=== PATIENT | female | born 1955 | race American Indian/Alaskan Native ===

== ENCOUNTER 2017-03-30 11:16 | Outpatient (CLI) | payer BC ==
--- NOTE | 2017-03-31 15:48 | Mammography Report ---
BILATERAL DIGITAL SCREENING MAMMOGRAM with CAD: 03/30/17 11:16:00 CLINICAL: Routine screening. COMPARISON:None available. FINDINGS: The breasts are heterogeneously dense, which may obscure small masses. No mass, architectural distortion or suspicious calcifications. IMPRESSION: No mammographic evidence of malignancy. BI-RADS CATEGORY: 1 - - Negative RECOMMENDATION: Routine mammographic screening in one year. COMMENT: Patient follow-up letters are generated by our [employer] application.
== END 2017-03-30 11:17 | disposition home or self-care (01) ==
LOC: MAMMO 11:16
PROVIDERS: ATTEND Obstetrics & Gynecology
DX: Z12.31 Encounter for screening mammogram for malignant neoplasm of breast (principal)
CPT/HCPCS: 77067; G0202

== ENCOUNTER 2017-04-06 15:37 | Outpatient (CLI) | payer BC ==
--- NOTE | 2017-04-08 12:57 | Vascular Lab Report ---
LOWER EXTREMITY ARTERIAL DUPLEX: REASON FOR EXAM: Decreased peripheral pulses. COMMENTS ON THE RIGHT: Triphasic waveforms are seen proximally. Triphasic waveforms are seen distally. No significant velocity gradients are identified. No significant plaque is identified. Findings are consistent with normal perfusion. Findings are consistent with the ability to heal distal wounds. COMMENTS ON THE LEFT: Triphasic waveforms are seen proximally. Triphasic waveforms are seen distally. No significant velocity gradients are identified. No significant plaque is identified. Findings are consistent with normal perfusion. Findings are consistent with the ability to heal distal wounds. IMPRESSION: RIGHT: Essentially normal arterial flow. LEFT:Essentially normal arterial flow.
== END 2017-04-06 15:38 | disposition home or self-care (01) ==
LOC: VAS 15:37
PROVIDERS: ATTEND Internal Medicine
DX: M79.605 Pain in left leg (principal); R09.89 Other specified symptoms and signs involving the circulatory and respiratory systems; E11.9 Type 2 diabetes mellitus without complications
CPT/HCPCS: 93925

== ENCOUNTER 2017-09-30 07:49 | Outpatient (CLI) | payer BC ==
[2017-09-30 08:15] LABS: Basophils # (Auto) 0.1 K/mm3 (0.0-0.1); Basophils % (Auto) 1.1 % (0.0-1.8); Eosinophils # (Auto) 0.2 K/mm3 (0.0-0.4); Eosinophils % (Auto) 3.2 % (0.0-4.3); Hematocrit 39.7 % (30.3-42.9); Hemoglobin 13.1 gm/dl (10.1-14.3); Lymphocytes # (Auto) 2.2 K/mm3 (1.2-5.4); Lymphocytes % (Auto) 33.5 % (13.4-35.0); Mean Corpuscular HGB Conc 33 % (30-34); Mean Corpuscular Hemoglobin 28 pg (28-32); Mean Corpuscular Volume 86 fl (79-97); Monocytes # (Auto) 0.5 K/mm3 (0.0-0.8); Monocytes % (Auto) 7.7 % (0.0-7.3); Platelet Count 210 K/mm3 (140-440); Red Cell Distribution Width 13.2 % (13.2-15.2)
[2017-09-30 08:47] LABS: Alanine Aminotransferase 15 units/L (7-56); BUN/Creatinine Ratio 15; Blood Urea Nitrogen 9 mg/dL (7-17); Calcium 9.4 mg/dL (8.4-10.2); Chol/HDL Ratio 4.14 %; HDL Cholesterol 55 mg/dL (40-59); Hemolysis Index 12; LDL Cholesterol,Direct 156 mg/dL (50-130)
== END 2017-09-30 07:50 | disposition home or self-care (01) ==
LOC: LAB 07:49
PROVIDERS: ATTEND Internal Medicine
DX: E11.9 Type 2 diabetes mellitus without complications (principal)
CPT/HCPCS: 36415; 80053; 80061; 83036; 84443; 85025

== ENCOUNTER 2017-09-30 09:37 | Outpatient (CLI) | payer BC ==
--- NOTE | 2017-09-30 11:52 | XRay Report ---
LUMBOSACRAL SPINE, FIVE VIEWS: HISTORY: Back pain, dorsopathy unspecified. There is normal height and alignment of the lumbar vertebra. No evidence for compression deformity, subluxation or bone lesion. Mild degenerative disc disease and facet arthropathy are identified at all levels. No advanced degenerative changes. The oblique images demonstrate no evidence for high-grade neural foraminal narrowing or pars defect. The sacrum and SI joints are unremarkable. IMPRESSION: Mild multilevel degenerative disc disease and facet arthropathy. No acute process.
== END 2017-09-30 09:38 | disposition home or self-care (01) ==
LOC: XRAY 09:37
PROVIDERS: ATTEND Internal Medicine
DX: M51.37 Other intervertebral disc degeneration, lumbosacral region (principal); M53.9 Dorsopathy, unspecified; M12.88 Other specific arthropathies, not elsewhere classified, other specified site
CPT/HCPCS: 72110

== ENCOUNTER 2017-12-07 10:08 | Day surgery (SDC) | payer BC ==
[~2017-12-07 10:08] MED LIST: WATER FOR IRRIG STERILE IR ONE; XYLOCAINE MPF 2% ONE
[2017-12-07] MEDS ORDERED: DIPRIVAN 10 MG/ML IV ONE ×2 (10:45)
[2017-12-07] MEDS ORDERED: ROBINUL ONE (10:50)
[2017-12-07] MEDS ORDERED: NACL 0.9% 1000 ML 1,000 ML IV SCH (11:00)
--- NOTE | 2017-12-07 11:43 | Post Operative Note ---
Date of procedure: 12/07/17 Pre-op diagnosis: screening colonoscopy Post-op diagnosis: same Findings: internal hemorrhoids, otherwise normal colonoscopy Procedure: Colonoscopy Anesthesia: MAC Surgeon: CARLO KHANNA Estimated blood loss: none Pathology: none Condition: stable Disposition: same day
--- NOTE | 2017-12-07 11:45 | Operative Report ---
Operative Report Operative Report: Colonoscopy Procedure Note Date of procedure: 12/07/2017 Endoscopist: Aries Jimenez Pre-op diagnosis: Screening for colon cancer Post-op diagnosis: internal hemorrhoids Anesthesia: MAC Complications: No immediate complications Estimated blood loss: none Procedure: After consent was obtained, the patient was placed in the left lateral decubitus position. The fujinon colonoscope was inserted into the patient's rectum under direct vision, and advanced to the cecum without difficulty. The patient tolerated the procedure well. The views of the mucosa were good. The quality of prep was good. The patient's vital signs were monitored continuously throughout the procedure. Findings: There were internal hemorrhoids visualized on retroflexion view. Otherwise, the colon appeared normal. Impression: 1. Internal hemorrhoids, otherwise normal colonoscopy Recommendations: -repeat colonoscopy in 10 years for screening purposes
[2017-12-07 12:12] VITALS: BP 124/69
== END 2017-12-07 10:09 | disposition home or self-care (01) ==
LOC: GIO 10:08
PROVIDERS: ATTEND Internal Medicine Gastroenterology
DX: Z12.11 Encounter for screening for malignant neoplasm of colon (principal); K64.8 Other hemorrhoids; E11.9 Type 2 diabetes mellitus without complications; D57.1 Sickle-cell disease without crisis; Z79.84 Long term (current) use of oral hypoglycemic drugs; Z83.3 Family history of diabetes mellitus; Z80.42 Family history of malignant neoplasm of prostate
CPT/HCPCS: 45378; J2704; J7030

== ENCOUNTER 2018-04-29 08:14 | Outpatient (CLI) | payer BC ==
[2018-04-29 08:38] LABS: Basophils % (Auto) 0.7 % (0.0-1.8); Eosinophils # (Auto) 0.1 K/mm3 (0.0-0.4); Hemoglobin 13.6 gm/dl (10.1-14.3); Lymphocytes # (Auto) 1.7 K/mm3 (1.2-5.4); Lymphocytes % (Auto) 24.4 % (13.4-35.0); Mean Corpuscular HGB Conc 33 % (30-34); Mean Corpuscular Volume 86 fl (79-97); Monocytes # (Auto) 0.3 K/mm3 (0.0-0.8); Platelet Count 229 K/mm3 (140-440); Red Blood Count 4.79 M/mm3 (3.65-5.03); Red Cell Distribution Width 13.6 % (13.2-15.2)
[2018-04-29 09:22] LABS: Alanine Aminotransferase 16 units/L (7-56); Albumin 4.4 g/dL (3.9-5); BUN/Creatinine Ratio 13; Blood Urea Nitrogen 9 mg/dL (7-17); Calcium 9.9 mg/dL (8.4-10.2); Chol/HDL Ratio 3.65 %; HDL Cholesterol 55 mg/dL (40-59); Hemolysis Index 6; LDL Cholesterol,Direct 139 mg/dL (50-130)
[2018-04-29 14:27] LABS: Creatinine,Urine 124.9 mg/dL (0.1-20.0); Microalbumin/Creatinine Ratio 10.4 ug/mg
== END 2018-04-29 08:15 | disposition home or self-care (01) ==
LOC: LAB 08:14
PROVIDERS: ATTEND Internal Medicine
DX: E11.9 Type 2 diabetes mellitus without complications (principal)
CPT/HCPCS: 36415; 80053; 80061; 82043; 83036; 84443; 85025

== ENCOUNTER 2018-05-04 07:12 | Outpatient (CLI) | payer BC ==
--- NOTE | 2018-05-04 08:15 | XRay Report ---
RIGHT KNEE, 3 views: History: Right knee pain. The bony architecture is intact without evidence of fracture or dislocation. No significant soft tissue abnormality is seen. IMPRESSION: Normal right knee.
--- NOTE | 2018-05-04 08:15 | XRay Report ---
LEFT THUMB, 3 views: History: Left thumb pain. The bony architecture is intact. Bony alignment is normal. No soft tissue abnormalities are seen. The joint spaces appear preserved. IMPRESSION: Left thumb within normal limits.
--- NOTE | 2018-05-04 08:16 | XRay Report ---
SACRUM AND COCCYX, 3 views: History: Sacrum pain. The bony architecture is intact. The alignment appears normal. No significant soft tissue abnormalities are seen. IMPRESSION: Normal sacrum and coccyx.
--- NOTE | 2018-05-05 13:50 | Mammography Report ---
BILATERAL DIGITAL SCREENING MAMMOGRAM with CAD: 05/04/18 07:12:00 CLINICAL: Routine screening. COMPARISON:03/30/17 FINDINGS: The breasts are heterogeneously dense, which may obscure small masses. No mass, architectural distortion or suspicious calcifications. IMPRESSION: No mammographic evidence of malignancy. BI-RADS CATEGORY: 1 - - Negative RECOMMENDATION: Routine mammographic screening in one year. COMMENT: Patient follow-up letters are generated by our [employer] application.
== END 2018-05-04 07:13 | disposition home or self-care (01) ==
LOC: MAMMO 07:12
PROVIDERS: ATTEND Internal Medicine
DX: Z12.31 Encounter for screening mammogram for malignant neoplasm of breast (principal); M25.561 Pain in right knee; M79.645 Pain in left finger(s); M53.3 Sacrococcygeal disorders, not elsewhere classified
CPT/HCPCS: 72220; 77067

== ENCOUNTER 2018-05-05 15:31 | Emergency (ER) | payer BC ==
[2018-05-05 15:44] VITALS: BP 143/69
[2018-05-05] MEDS ORDERED: IBUPROFEN PO ONE (15:53)
--- NOTE | 2018-05-05 16:15 | Emergency Department Report ---
ED Lower Extremity HPI - General Chief Complaint: Fall Stated Complaint: HIP PAIN/INJURY Time Seen by Provider: 05/05/18 15:51 Source: patient Mode of arrival: Ambulatory Limitations: No Limitations - History of Present Illness Initial Comments: This is a 63-year-old female nontoxic, well nourished in appearance, no acute signs of distress presents to the ED with c/o of left hip and lateral thigh pain status post fall that occured this morning in the working parking lot. Patient stated that she had a ground level fall. Patient deneis any head or neck trauma or pain. Patient denies any back pain. Patient denies any other trauma. Patient denies any numbness, tingling, fever, chills, nausea, vomiting, chest pain, shortness of breath, headache, stiff neck. Patient denies any joint swelling or joint redness. Patient denies decreased range of motion. Patient stated has decreased gait due to pain. Patient denies any allergies. MD Complaint: hip injury, thigh injury -: This morning Injury: Hip: Left, Thigh: Left Place: work Severity: mild Severity scale (0 -10): 8 Improves With: immobilization Worsens With: weight bearing, movement, palpation Context: fall Associated Symptoms: able to partially bear weight, ambulatory. denies: snap/pop sensation, swelling, numbness, tingling, unable to bear weight - Related Data Home Medications Medication Instructions Recorded Confirmed Last Taken metFORMIN 500 mg PO BID 12/07/17 05/05/18 12/06/17 Previous Rx's Medication Instructions Recorded Last Taken Type Acetaminophen/Codeine [Tylenol 1 tab PO Q6H PRN #12 tab 05/05/18 Unknown Rx /Codeine # 3 tab] Ibuprofen [Motrin] 600 mg PO Q8H PRN #20 tablet 05/05/18 Unknown Rx Allergies Allergy/AdvReac Type Severity Reaction Status Date / Time No Known Allergies Allergy Verified 12/07/17 07:26 ED Review of Systems ROS: Stated complaint: HIP PAIN/INJURY Other details as noted in HPI Constitutional: denies: chills, fever Eyes: denies: eye pain, eye discharge, vision change ENT: denies: ear pain, throat pain Respiratory: denies: cough, shortness of breath, wheezing Cardiovascular: denies: chest pain, palpitations Endocrine: no symptoms reported Gastrointestinal: denies: abdominal pain, nausea, diarrhea Genitourinary: denies: urgency, dysuria, discharge Musculoskeletal: arthralgia. denies: back pain, joint swelling Skin: denies: rash, lesions Neurological: denies: headache, weakness, paresthesias Psychiatric: denies: anxiety, depression Hematological/Lymphatic: denies: easy bleeding, easy bruising ED Past Medical Hx - Past Medical History Hx Diabetes: Yes Hx Sickle Cell Disease: Yes (TRAIT) - Surgical History Past Surgical History?: No - Social History Smoking Status: Never Smoker Substance Use Type: None - Medications Home Medications: Home Medications Medication Instructions Recorded Confirmed Last Taken Type metFORMIN 500 mg PO BID 12/07/17 05/05/18 12/06/17 History Acetaminophen/Codeine [Tylenol 1 tab PO Q6H PRN #12 tab 05/05/18 Unknown Rx /Codeine # 3 tab] Ibuprofen [Motrin] 600 mg PO Q8H PRN #20 tablet 05/05/18 Unknown Rx ED Physical Exam - General Limitations: No Limitations General appearance: alert, in no apparent distress - Head Head exam: Present: atraumatic, normocephalic - Eye Eye exam: Present: normal appearance - Neck Neck exam: Present: normal inspection, full ROM - Extremities Exam Extremities exam: Present: normal inspection, full ROM, tenderness, normal ca pillary refill. Absent: joint swelling, calf tenderness - Expanded Lower Extremity Exam Left Hip exam: Present: normal inspection, full ROM, tenderness, external rotation, internal rotation, pelvic stability. Absent: swelling, abrasion, laceration, ecchymosis, deformity, crepidus, dislocation, erythema, shortening Upper Leg exam: Present: normal inspection, full ROM, tenderness. Absent: swelling, abrasion, laceration, ecchymosis, deformity, crepidus, dislocation, erythema Knee exam: Present: normal inspection, full ROM. Absent: tenderness Lower Leg exam: Present: normal inspection, full ROM. Absent: tenderness Ankle exam: Present: normal inspection, full ROM. Absent: tenderness Foot/Toe exam: Present: normal inspection, full ROM. Absent: tenderness Neuro vascular tendon exam: Present: no vascular compromise Gait: Positive: observed and limited by pain 1 - pain here - Back Exam Back exam: Present: normal inspection, full ROM. Absent: tenderness, CVA tenderness (R), CVA tenderness (L), muscle spasm, paraspinal tenderness, vertebral tenderness, rash noted - Neurological Exam Neurological exam: Present: alert, oriented X3, normal gait - Psychiatric Psychiatric exam: Present: normal affect, normal mood - Skin Skin exam: Present: warm, dry, intact, normal color. Absent: rash ED Course Vital Signs 05/05/18 15:41 Temperature 97.8 F Pulse Rate 74 Respiratory 18 Rate Blood Pressure 143/69 O2 Sat by Pulse 99 Oximetry - Reevaluation(s) Reevaluation #1: 05/05/18 16:59 Patient is speaking in full sentences with no signs of distress noted. ED Lower Extremity MDM - Medical Decision Making This is a 63-year-old female that presents with left hip strain. Patient is stable and was examined by me. I referred patient to an orthopedic doctor for further evaluation for possible MRI. X-ray has been obtained and dictated by the radiologist. Patient is notified of the x-ray report with noted by the patient. Patient does have normal gait with no tenderness and no joint swelling. No ecchymosis. no joint redness or swelling. Not warm to touch. No signs of cellulites present. Patient was instructed to RICE therapy. Patient received Motrin for pain. Patient is discharged with Motrin and Tylenol #3. At time of discharge, the patient does not seem toxic or ill in appearance. No acute signs of distress noted. Patient agrees to discharge treatment plan of care. No further questions noted by the patient. Critical care attestation.: If time is entered above; I have spent that time in minutes in the direct care of this critically ill patient, excluding procedure time. ED Disposition Clinical Impression: Strain of left hip Qualifiers: Encounter type: initial encounter Qualified Code(s): S76.012A - Strain of muscle, fascia and tendon of left hip, initial encounter Fall Qualifiers: Encounter type: initial encounter Qualified Code(s): W19.XXXA - Unspecified fall, initial encounter Disposition: TO HOME OR SELFCARE Is pt being admited?: No Does the pt Need Aspirin: No Condition: Stable Instructions: RICE Therapy (ED) Additional Instructions: Follow-up with a orthopedic doctor in 3-5 days or if symptoms worsen and continue return to emergency room as soon as possible. Do not operate any machinery while taking Tylenol with codeine as this may cause drowsiness. Prescriptions: Acetaminophen/Codeine [Tylenol /Codeine # 3 tab] 1 tab PO Q6H PRN #12 tab PRN Reason: Pain , Severe (7-10) Ibuprofen [Motrin] 600 mg PO Q8H PRN #20 tablet PRN Reason: Pain Referrals: PRIMARY CAREMD [Referring] - 3-5 Days AMARJIT PRITCHETT MD [Staff Physician] - 3-5 Days [facility] [Outside] - 3-5 Days Forms: Work/School Release Form(ED)
--- NOTE | 2018-05-05 17:18 | XRay Report ---
FINAL REPORT EXAM: XR FEMUR 2+V LT HISTORY: pain s/p fall TECHNIQUE: AP and lateral views of the left femur PRIORS: None. FINDINGS: There is no evidence for acute fracture or dislocation. No soft tissue swelling or radiopaque foreign bodies are seen. Bony mineralization is normal and joint spaces are maintained. IMPRESSION: No acute bony or soft tissue abnormality noted.
--- NOTE | 2018-05-05 17:19 | XRay Report ---
FINAL REPORT EXAM: XR HIP 2-3V LT HISTORY: pain s/p fall TECHNIQUE: AP view of the pelvis and single coned-down view of the left hip. PRIORS: None. FINDINGS: No evidence for acute fracture or dislocation is seen. Joint spaces are maintained. The soft tissues are unremarkable. Bony mineralization is normal. IMPRESSION: No acute soft tissue or bony abnormality noted in the left hip.
== END 2018-05-05 17:35 | disposition home or self-care (01) ==
LOC: ED 15:31
DX: E11.9 Type 2 diabetes mellitus without complications (principal); D57.3 Sickle-cell trait; W19.XXXA Unspecified fall, initial encounter; Y93.89 Activity, other specified; Y99.0 Civilian activity done for income or pay; Y92.481 Parking lot as the place of occurrence of the external cause
CPT/HCPCS: 99283

== ENCOUNTER 2019-02-11 07:40 | Outpatient (CLI) | payer BC ==
--- NOTE | 2019-02-11 08:27 | XRay Report ---
CERVICAL SPINE, 5 VIEWS INDICATION: M54.12 CERVICAL RADICULOPATHY. Shoulder pain COMPARISON: None. IMPRESSION: There is borderline bone mineralization. Normal height and alignment of the cervical ve rtebral bodies. No evidence for fracture or bone lesion. Disc space height is preserved although mini mal degenerative endplate changes are identified. Mild facet arthropathy is suspected at C5-6 and C7- T1. Oblique images demonstrate no high-grade narrowing of the bony neural foramen. No acute osseous or soft tissue abnormality. If radicular symptoms are present, consider further evaluation with MRI cervical spine without contrast. RIGHT HIP, 2 VIEWS INDICATION: Right hip pain. COMPARISON: None. IMPRESSION: Borderline bone mineralization. No acute osseous findings or joint pathology is identif ied. No bone lesion or osteonecrosis. The pelvis is unremarkable. Signer Name: Silvio Humphrey Jr, MD Signed: 02/11/2019 8:22 AM Workstation Name: [id number]
[2019-02-11 08:41] LABS: Basophils # (Auto) 0.1 K/mm3 (0.0-0.1); Basophils % (Auto) 1.1 % (0.0-1.8); Eosinophils # (Auto) 0.2 K/mm3 (0.0-0.4); Eosinophils % (Auto) 2.4 % (0.0-4.3); Hematocrit 41.1 % (30.3-42.9); Hemoglobin 13.4 gm/dl (10.1-14.3); Lymphocytes # (Auto) 1.9 K/mm3 (1.2-5.4); Lymphocytes % (Auto) 28.6 % (13.4-35.0); Mean Corpuscular HGB Conc 33 % (30-34); Mean Corpuscular Volume 87 fl (79-97); Monocytes # (Auto) 0.4 K/mm3 (0.0-0.8); Monocytes % (Auto) 5.8 % (0.0-7.3); Platelet Count 191 K/mm3 (140-440); Red Cell Distribution Width 13.2 % (13.2-15.2)
[2019-02-11 08:57] LABS: Alanine Aminotransferase 15 units/L (7-56); Albumin 4.4 g/dL (3.9-5); BUN/Creatinine Ratio 16; Blood Urea Nitrogen 11 mg/dL (7-17); Calcium 9.3 mg/dL (8.4-10.2); Chol/HDL Ratio 3.74 %; HDL Cholesterol 54 mg/dL (40-59); Hemolysis Index 19; LDL Cholesterol,Direct 143 mg/dL (50-130)
[2019-02-11 22:29] LABS: Creatinine,Urine 84.5 mg/dL (0.1-20.0)
[2019-02-11 22:31] LABS: Microalbumin/Creatinine Ratio 14.2 ug/mg
== END 2019-02-11 07:41 | disposition home or self-care (01) ==
LOC: LAB 07:40 → XRAY 07:40
PROVIDERS: ATTEND Internal Medicine
DX: M54.12 Radiculopathy, cervical region (principal); M25.551 Pain in right hip; E11.9 Type 2 diabetes mellitus without complications; M48.02 Spinal stenosis, cervical region; M25.519 Pain in unspecified shoulder
CPT/HCPCS: 36415; 72050; 80053; 80061; 82043; 83036; 84443; 85025

== ENCOUNTER 2020-02-10 11:32 | Outpatient (CLI) | payer BC | END 2020-02-10 11:33 | disposition home or self-care (01) | LOC: MAMMO 11:32 | PROVIDERS: ATTEND Internal Medicine | DX: Z12.31 Encounter for screening mammogram for malignant neoplasm of breast (principal) | CPT/HCPCS: 77067 ==

== ENCOUNTER 2020-02-15 07:12 | Outpatient (CLI) | payer BC ==
[2020-02-15 10:18] LABS: Hematocrit 38.3 % (30.3-42.9); Hemoglobin 13.5 gm/dl (10.1-14.3); Mean Corpuscular HGB Conc 35 % (30-34); Mean Corpuscular Volume 84 fl (79-97); Platelet Count 194 K/mm3 (140-440); Red Blood Count 4.54 M/mm3 (3.65-5.03); Red Cell Distribution Width 13.3 % (13.2-15.2)
[2020-02-15 10:50] LABS: Alanine Aminotransferase 15 units/L (7-56); Albumin 4.5 g/dL (3.9-5); Blood Urea Nitrogen 9 mg/dL (7-17); Calcium 10.2 mg/dL (8.4-10.2); Chol/HDL Ratio 4.19 %; Creatinine,Urine 42.4 mg/dL (0.1-20.0); HDL Cholesterol 56 mg/dL (40-59); Hemolysis Index 9; LDL Cholesterol,Direct 161 mg/dL (50-130)
[2020-02-15 10:51] LABS: BUN/Creatinine Ratio 13; Microalbumin/Creatinine Ratio 28.3 ug/mg
== END 2020-02-15 07:13 | disposition home or self-care (01) ==
LOC: LAB 07:12
PROVIDERS: ATTEND Internal Medicine
DX: E11.9 Type 2 diabetes mellitus without complications (principal)
CPT/HCPCS: 36415; 80053; 80061; 82043; 83036; 84443; 85027

== ENCOUNTER 2020-02-20 10:40 | Outpatient (CLI) | payer BC ==
--- NOTE | 2020-02-20 14:18 | Magnetic Resonance Report ---
MR LE joint RT wo con INDICATION / CLINICAL INFORMATION: RIGHT HIP PAIN. TECHNIQUE: Multiplanar, multisequence MR images were obtained. COMPARISON: None available. FINDINGS: No significant joint fluid is seen in the right hip. There is no evidence of avascular necrosis or a femoral fracture. Mild diffuse chondrosis is seen. Soft tissues of brown the hip are unremarkable in appearance. No large fluid collection or soft tissue mass is present. IMPRESSION: Mild diffuse chondrosis in the right hip joint. Otherwise negative exam Signer Name: Bill Malcolm MD FACR Signed: 02/20/2020 2:14 PM Workstation Name: [id number]
== END 2020-02-20 10:41 | disposition home or self-care (01) ==
LOC: MRI 10:40
PROVIDERS: ATTEND Orthopaedic Surgery
DX: M94.351 Chondrolysis, right hip (principal)
CPT/HCPCS: 73721

== ENCOUNTER 2020-08-31 15:40 | Emergency (ER) | payer OTHER, BC ==
[2020-08-31 15:54] VITALS: BP 140/73
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
== END 2020-08-31 16:48 | disposition home or self-care (01) ==
LOC: ED 15:40
DX: M25.512 Pain in left shoulder (principal); E11.9 Type 2 diabetes mellitus without complications; Z79.1 Long term (current) use of non-steroidal anti-inflammatories (NSAID); Z79.84 Long term (current) use of oral hypoglycemic drugs; Z79.899 Other long term (current) drug therapy; Y04.2XXA Assault by strike against or bumped into by another person, initial encounter; Y93.89 Activity, other specified; Y92.89 Other specified places as the place of occurrence of the external cause; Y99.8 Other external cause status

== ENCOUNTER 2021-01-05 15:47 | Emergency (ER) | payer BC, OTHER ==
[2021-01-05 15:52] VITALS: BP 148/76
--- NOTE | 2021-01-05 16:10 | Emergency Department Report ---
ED General Adult HPI - General Chief complaint: Chest Pain Stated complaint: CHEST PAIN Time Seen by Provider: 01/05/21 15:56 Source: patient Mode of arrival: Ambulatory Limitations: No Limitations - History of Present Illness Initial comments: Patient presents secondary to chest pain. Over the last day, she has had some left parasternal chest pain. She believes it is because she carries her backpack on the left side. She also does push-ups in the morning. The pain is sharp and on the left side. It lasts for seconds when it occurs. It does not radiate or migrate. She cannot state that she is ever had pain like this before. Patient has no cough or congestion. There has been no fever. She has had no injury or trauma. There is no recent travel. She has had no pain or swelling in the legs. Symptoms are not exertional. It is worse when she lies on her left side. - Related Data Home Medications Medication Instructions Recorded Confirmed Last Taken metFORMIN 500 mg PO BID 12/07/17 05/05/18 12/06/17 Previous Rx's Medication Instructions Recorded Last Taken Type Acetaminophen/Codeine [Tylenol 1 tab PO Q6H PRN #12 tab 05/05/18 Unknown Rx /Codeine # 3 tab] Ibuprofen [Motrin] 600 mg PO Q8H PRN #20 tablet 05/05/18 Unknown Rx Menthol/Camphor [[place] 1 applicatio TP BID #18 oint...g. 08/31/20 Unknown Rx Ointment] Naproxen [EC-Naprosyn] 375 mg PO BID PRN #14 tablet.dr 08/31/20 Unknown Rx methOCARBAMOL [Robaxin TAB] 500 mg PO BID PRN #14 tab 08/31/20 Unknown Rx Lidocaine [Lidoderm] 1 each TP DAILY #30 adh..patch 01/05/21 Unknown Rx Allergies Allergy/AdvReac Type Severity Reaction Status Date / Time No Known Allergies Allergy Verified 12/07/17 07:26 ED Review of Systems ROS: Stated complaint: CHEST PAIN Other details as noted in HPI Comment: All other systems reviewed and negative Constitutional: denies: fever Eyes: denies: eye pain ENT: denies: throat pain Respiratory: denies: cough Cardiovascular: as per HPI Endocrine: denies: unexplained weight loss Gastrointestinal: denies: abdominal pain Genitourinary: denies: dysuria Musculoskeletal: denies: back pain Skin: denies: rash Neurological: denies: headache Hematological/Lymphatic: denies: easy bruising ED Past Medical Hx - Past Medical History Previous Medical History?: Yes Hx Diabetes: Yes Hx Sickle Cell Disease: Yes (TRAIT) - Surgical History Past Surgical History?: No - Family History Family history: diabetes - Social History Smoking Status: Never Smoker Substance Use Type: None - Medications Home Medications: Home Medications Medication Instructions Recorded Confirmed Last Taken Type metFORMIN 500 mg PO BID 12/07/17 05/05/18 12/06/17 History Acetaminophen/Codeine [Tylenol 1 tab PO Q6H PRN #12 tab 05/05/18 Unknown Rx /Codeine # 3 tab] Ibuprofen [Motrin] 600 mg PO Q8H PRN #20 tablet 05/05/18 Unknown Rx Menthol/Camphor [[place] 1 applicatio TP BID #18 oint...g. 08/31/20 Unknown Rx Ointment] Naproxen [EC-Naprosyn] 375 mg PO BID PRN #14 tablet.dr 08/31/20 Unknown Rx methOCARBAMOL [Robaxin TAB] 500 mg PO BID PRN #14 tab 08/31/20 Unknown Rx Lidocaine [Lidoderm] 1 each TP DAILY #30 adh..patch 01/05/21 Unknown Rx ED Physical Exam - General Limitations: No Limitations General appearance: alert, in no apparent distress - Head Head exam: Present: atraumatic, normocephalic - Eye Eye exam: Present: normal appearance, EOMI. Absent: scleral icterus - ENT ENT exam: Present: normal exam, normal external ear exam - Neck Neck exam: Present: normal inspection. Absent: meningismus - Respiratory Respiratory exam: Present: normal lung sounds bilaterally, chest wall tenderness (Left parasternal area). Absent: respiratory distress - Cardiovascular Cardiovascular Exam: Present: regular rate, normal rhythm - GI/Abdominal GI/Abdominal exam: Present: soft. Absent: tenderness - Extremities Exam Extremities exam: Absent: calf tenderness - Back Exam Back exam: Absent: CVA tenderness (R), CVA tenderness (L) - Neurological Exam Neurological exam: Present: alert, oriented X3, normal gait. Absent: motor sensory deficit - Psychiatric Psychiatric exam: Present: normal affect, normal mood - Skin Skin exam: Present: warm, dry ED Course Vital Signs 01/05/21 15:50 Temperature 98.4 F Pulse Rate 61 Respiratory 16 Rate Blood Pressure 148/76 [Left] O2 Sat by Pulse 98 Oximetry - Reevaluation(s) Reevaluation #1: 01/05/21 19:29 Patient was discharged. ED Medical Decision Making - Medical Decision Making Patient presents with fleeting episodes of sharp chest pain. There is no symptomatology to suggestive of ACS. This not exertional. She is not short of breath. She has no other associated symptoms. The symptoms have been fleeting. There is no recent injury or trauma to suggest rib fracture. She has no absent breath sounds to suggest pneumothorax. There is no pulse deficit with suggest aortic dissection. She has no risk factor for PE. She was treated symptomatically and referred for outpatient evaluation and follow-up. She was not hypoxic. Critical Care Time: No Critical care attestation.: If time is entered above; I have spent that time in minutes in the direct care of this critically ill patient, excluding procedure time. ED Disposition Clinical Impression: Chest wall pain Disposition: 01 HOME / SELF CARE / HOMELESS Is pt being admited?: No Does the pt Need Aspirin: No Condition: Stable Instructions: Chest Wall Pain, [id number], Nonspecific Chest Pain, Adult Additional Instructions: Apply ice to the sore areas. Use Tylenol and ibuprofen. Follow-up with your regular doctor for recheck. Return for problems or concerns. Prescriptions: Lidocaine [Lidoderm] 1 each TP DAILY #30 adh..patch Referrals: PRIMARY CARE, [Primary Care Provider] - 3-5 Days
== END 2021-01-05 16:31 | disposition home or self-care (01) ==
LOC: ED 15:47
DX: R07.89 Other chest pain (principal)
CPT/HCPCS: 99281

== ENCOUNTER 2021-02-07 08:56 | Outpatient (CLI) | payer BC ==
--- NOTE | 2021-02-07 14:31 | Vascular Lab Report ---
DUPLEX DOPPLER LOWER EXTREMITY ARTERIAL, BILATERAL INDICATION / CLINICAL INFORMATION: pvd. TECHNIQUE: Arterial duplex examination of both lower extremities performed using B-mode, color flow a nd spectral Doppler assessment. COMPARISON: Bilateral lower extremity arterial Doppler 04/06/2017. FINDINGS: RIGHT: Common Femoral Artery: PSV 138 cm/sec. Biphasic waveform. Proximal SFA: PSV 119 cm/sec. Biphasic waveform. Mid SFA: PSV 143 cm/sec. Biphasic waveform. Distal SFA: PSV 144 cm/sec. Triphasic waveform. Popliteal artery: PSV 105 cm/sec. Triphasic waveform. Posterior tibial artery: PSV 140 cm/sec. Triphasic waveform. Dorsalis Pedis Artery: PSV 69 cm/sec. Triphasic waveform. LEFT: Common Femoral Artery: PSV 118 cm/sec. Biphasic waveform. Proximal SFA: PSV 108 cm/sec. Biphasic waveform. Mid SFA: PSV 130 cm/sec. Biphasic waveform. Distal SFA: PSV 118 cm/sec. Biphasic waveform. Popliteal artery: PSV 85 cm/sec. Biphasic waveform. Posterior tibial artery: PSV 115 cm/sec. Biphasic waveform. Dorsalis Pedis Artery: PSV 145 cm/sec. Triphasic waveform. Right YOSEF: Not performed. Left YOSEF: Not performed. IMPRESSION: 1. No significant lower extremity peripheral artery disease. Ankle-Brachial Index (YOSEF): - Calcified arteries > 1.4 - Normal = 0.9-1.4 - Mild PAD = 0.7-0.89 - Moderate PAD = 0.51-0.69 - Severe PAD < 0.5 Doppler Waveform: - Triphasic is normal. - Biphasic is abnormal if clear transition from triphasic signal along vascular tree. - Monophasic is abnormal. Scribed by: Agustina Martínez RDMS, RVT Scribed: 02/07/2021 1:20 PM I have reviewed the images, agree with this report, and edited this report as needed. Signer Name: Tomy Jaffe MD Signed: 02/07/2021 2:27 PM Workstation Name: [id number]
--- NOTE | 2021-02-08 08:49 | Mammography Report ---
DIGITAL SCREENING MAMMOGRAM WITH CAD, 02/07/2021 CLINICAL INFORMATION / INDICATION: Routine screening mammography. TECHNIQUE: Digital bilateral 2D mammography was obtained in the craniocaudal and mediolateral obliqu e projections. This examination was interpreted with the benefit of Computer-Aided Detection analysis . COMPARISON: 02/10/2020, 05/04/2018 FINDINGS: Breast Density: There are scattered areas of fibroglandular density. No dominant mass, suspicious calcifications, or architectural distortion in either breast. IMPRESSION: No mammographic evidence of malignancy. Follow up recommendation: Routine yearly BI-RADS Category 1: Negative. A "normal" or negative report should not discourage follow up or biopsy of a clinically significant f inding. A written summary of these findings will be mailed to the patient. The patient will be entered into a mammography reporting system which will generate a reminder letter for the patient's next appointmen t at the appropriate interval. The [employer] recommends yearly mammograms starting at age 40 and continuing as l sergey as a woman is in good health. Breast MRI is recommended for women with an approximate 20-25% or greater lifetime risk of breast cancer, including women with a strong family history of breast or ova daniel cancer or who have been treated for Hodgkin's disease. Signer Name: Bonny Thompson MD Signed: 02/08/2021 8:45 AM Workstation Name: [email or web address]
== END 2021-02-07 08:57 | disposition home or self-care (01) ==
LOC: MAMMO 08:56
PROVIDERS: ATTEND Internal Medicine
DX: Z12.31 Encounter for screening mammogram for malignant neoplasm of breast (principal); I73.9 Peripheral vascular disease, unspecified
CPT/HCPCS: 77067; 93925

== ENCOUNTER 2021-09-21 13:59 | Emergency (ER) | payer BC, OTHER ==
[2021-09-21] MEDS ORDERED: IBUPROFEN 800 MG TAB PO ONE (14:51)
--- NOTE | 2021-09-21 15:18 | XRay Report ---
Cervical spine-3 views INDICATION: injury, pain. COMPARISON: None. IMPRESSION: Normal alignment. Mild multilevel discogenic DJD. No acute osseous or soft tissue abno rmality. Signer Name: Luke Lugo MD Signed: 09/21/2021 3:14 PM Workstation Name: [id number]
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
[2021-09-21 15:58] VITALS: BP 160/82
== END 2021-09-21 15:57 | disposition home or self-care (01) ==
LOC: ED 13:59
DX: M54.2 Cervicalgia (principal); E11.9 Type 2 diabetes mellitus without complications; D57.3 Sickle-cell trait; Y04.8XXA Assault by other bodily force, initial encounter; Y93.89 Activity, other specified; Y92.89 Other specified places as the place of occurrence of the external cause; Y99.8 Other external cause status
CPT/HCPCS: 72040; 99283

== ENCOUNTER 2021-12-24 11:06 | Outpatient (CLI) | payer BC ==
[2021-12-24 12:30] LABS: Alanine Aminotransferase 16 units/L (7-56); Albumin 4.5 g/dL (3.9-5); BUN/Creatinine Ratio 15; Blood Urea Nitrogen 12 mg/dL (7-17); Chol/HDL Ratio 3.94 %; HDL Cholesterol 54 mg/dL (40-59); Hemolysis Index 4; LDL Cholesterol,Direct 138 mg/dL (50-130)
[2021-12-24 12:36] LABS: Basophils % (Auto) 0.6 % (0.0-1.8); Eosinophils # (Auto) 0.2 K/mm3 (0.0-0.4); Hematocrit 40.6 % (30.3-42.9); Hemoglobin 13.2 gm/dl (10.1-14.3); Lymphocytes # (Auto) 1.6 K/mm3 (1.2-5.4); Lymphocytes % (Auto) 24.8 % (13.4-35.0); Mean Corpuscular HGB Conc 33 % (30-34); Mean Corpuscular Volume 87 fl (79-97); Monocytes # (Auto) 0.4 K/mm3 (0.0-0.8); Monocytes % (Auto) 5.6 % (0.0-7.3); Platelet Count 216 K/mm3 (140-440); Red Blood Count 4.66 M/mm3 (3.65-5.03); Red Cell Distribution Width 13.4 % (13.2-15.2)
[2021-12-24 12:37] LABS: Eosinophils % (Auto) 2.3 % (0.0-4.3)
[2021-12-24 13:13] LABS: Mucus,Urine FEW /HPF
[2021-12-24 13:20] LABS: Color,Urine Straw (Yellow)
--- NOTE | 2021-12-24 13:54 | XRay Report ---
Lumbar spine, 5 views HISTORY: Pain COMPARISON: None FINDINGS: Minimal anterolisthesis of L4-L5, likely degenerative related to lower lumbar facet arthropathy. Vert ebral body heights are intact. No evidence of fracture. Disc spaces are largely maintained with small marginal osteophytes. SI joints are intact. No focal soft tissue abnormality. IMPRESSION: 1. No acute findings. 2. Lower lumbar spondylosis, as above. Signer Name: Fortino Smith MD Signed: 12/24/2021 1:50 PM Workstation Name: [id number]
--- NOTE | 2021-12-24 14:01 | XRay Report ---
CERVICAL SPINE 5 VIEWS INDICATION: Neck pain. Sciatica. COMPARISON: Cervical spine series from 09/22/2019. FINDINGS: VERTEBRAE: No acute fracture. There is similar grade 1 anterolisthesis at C7-T1. DISC SPACES: No significant abnormality. FACET JOINTS: Generalized bilateral facet arthropathy is unchanged. SOFT TISSUES: No significant abnormality. ADDITIONAL FINDINGS: No additional significant findings. IMPRESSION: 1. No acute findings. 2. Unchanged mild cervical spondylosis and grade 1 anterolisthesis at C7-T1. Signer Name: Tomy Jaffe MD Signed: 12/24/2021 1:57 PM Workstation Name: [id number]
== END 2021-12-24 11:07 | disposition home or self-care (01) ==
LOC: XRAY 11:06
PROVIDERS: ATTEND Internal Medicine
DX: M43.13 Spondylolisthesis, cervicothoracic region (principal); M43.16 Spondylolisthesis, lumbar region; E11.9 Type 2 diabetes mellitus without complications; E78.9 Disorder of lipoprotein metabolism, unspecified; E78.5 Hyperlipidemia, unspecified; M15.9 Polyosteoarthritis, unspecified
CPT/HCPCS: 36415; 72050; 72110; 80053; 80061; 81001; 83036; 84443; 85025